=== PATIENT | male | born 1945 | race Two or more races ===

== ENCOUNTER 2024-03-30 14:24 | Inpatient (IN) | payer OTHER ==
[~2024-03-30] VITALS: Ht 180.3 cm; Wt 114.2 kg
[~2024-03-30 14:24] MED LIST: ATOR-507 PO; INSLANTI SC; INSREG3 SC; METF-372 PO
--- NOTE | 2024-03-30 14:41 | ECG ---
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
--- NOTE | 2024-03-30 15:00 | ED.PDOC ---
Altered Mental Status HPI Comments 78Y M with PMHx DM, HTN, and HLD presents to ED via EMS for chief complaint ALOC x1day. Pt has been experiencing confusion and poor appetite x1wk. Pt was seen at [facility] yesterday, 03/29/2024, for cc fall and was discharged home the same day. Per EMS, pt is usually up and talking. Pt arrived to ED with O2 supplementation. Pt is not on O2 at home. Chief Complaint: ALOC Time Seen by MD: 14:32 Primary Care Provider: unknown Reviewed Notes: Medications, Allergies Allergies: Coded Allergies: Aspirin (Verified Allergy, Unknown, 03/30/24) Information Source: Patient, Emergency Med Personnel Mode of Arrival: EMS Brought in by: EMS Severity: Moderate, Unable to Care for Self Timing: Days Duration: Since onset Prehospital treatment: Oxygen Quality: Change in Behavior, Confusion, Memory Loss, Not Eating Recent: None History of: Diabetes Associated Signs and Symptoms: None Past Medical History PAST MEDICAL HISTORY: DM, High Lipids, HTN Surgical History: Unknown Family History Family History: Unknown Social History Smoker: Non-Smoker Alcohol: Denies ETOH Use Drugs: Denies Drug Use Lives In: Assisted Care Constitutional: denies: chills, diaphoresis, fatigue, fever, malaise, sweats, weakness, others EENTM: denies: blurred vision, double vision, ear bleeding, ear discharge, ear drainage, ear pain, ear ringing, eye pain, eye redness, hearing loss, mouth pain, mouth swelling, nasal discharge, nose bleeding, nose congestion, nose pain, photophobia, tearing, throat pain, throat swelling, voice changes, others Respiratory: denies: cough, hemoptysis, orthopnea, SOB at rest, shortness of breath, SOB with excertion, stridor, wheezing, others Cardiovascular: denies: chest pain, dizzy spells, diaphoresis, Dyspnea on ex ertion, edema, irregular heart beat, left arm pain, lightheadedness, palpitations, PND, syncope, others Gastrointestinal: reports: poor appetite; denies: abdomen distended, abdominal pain, blood streaked bowels, constipated, diarrhea, dysphagia, difficulty swallowing, hematemesis, melena, nausea, poor fluid intake, rectal bleeding, rectal pain, vomiting, others Genitourinary: denies: burning, dysuria, flank pain, frequency, hematuria, incontinence, penile discharge, penile sore, pain, testicle pain, testicle swelling, urgency, others Neurological: denies: dizziness, fainting, headache, left sided numbness, left sided weakness, numbness, paresthesia, pre-existing deficit, right sided numbness, right sided weakness, seizure, speech problems, tingling, tremors, weakness, others Musculoskeletal: denies: back pain, gout, joint pain, joint swelling, muscle pain, muscle stiffness, neck pain, others Integumetry: denies: bruises, change in color, change in hair/nails, dryness, laceration, lesions, lumps, rash, wounds, others Allergic/Immunocompromised: denies: Difficulty Healing, Frequent Infections, Hives, Itching, others Hematologic/Lymphatic: denies: anemia, blood clots, easy bleeding, easy bruising, swollen glands, others Endocrine: denies: excessive hunger, excessive sweating, excessive thirst, excessive urination, flushing, intolerance to cold, intolerance to heat, unexplained weight gain, unexplained weight loss, others Psychiatric: denies: anxiety, bipolar disorder, depression, hopeless, panic disorder, schizophrenia, sleepless, suicidal, others Unable to Obtain due to: Altered Mental Status All Other Systems: Reviewed and Negative Physical Exam General Appearance: Moderate Distress, Normal HEENT: Normal ENT Inspection, Pharynx Normal, TMs Normal Neck: Full Range of Motion, Non-Tender, Normal, Normal Inspection Respiratory: Chest Non-Tender, Lungs Clear, No Accessory Muscle Use, No Respiratory Distress, Normal Breath Sounds Cardiovascular: No Edema, No JVD, No Murmur, No Gallop, Normal Peripheral Pulses, Regular Rate/Rhythm Breast Exam: Deferred Gastrointestinal: No Organomegaly, Non Tender, No Pulsatile Mass, Normal Bowel Sounds, Soft Genitalia: Deferred Pelvic: Deferred Rectal: Deferred Extremities: No calf tenderness, Normal capillary refill, Normal inspection, Normal range of motion, Non-tender, No pedal edema Musculoskeletal : Apperance: Normal 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 Was a procedure done?: No Differential Diagnosis (ALOC) Differential Diagnosis: Dehydration, DKA, Sepsis, Hypoxemia, CVA X-Ray, Labs, Meds, VS Vital Signs Date Time Temp Pulse Resp B/P (MAP) Pulse Ox O2 Delivery O2 Flow Rate FiO2 03/30/24 14:39 101.6 98 16 146/82 (103) 94 03/30/24 14:33 98 Lab Test 03/30/24 14:50 Range/Units Plasma/Serum Blood Alcohol 3.3 <10 mg/dL Patient disoriented. Does answer simple questions pain Vitals stable. He was recently at this hospital. Has fever. Possible sepsis from urine. Possible pneumonia. Was given Rocephin. EKG reviewed does not show any acute changes. Chest x-ray reviewed does not show any acute changes. Reviewed his previous visit. Explained to the patient. Continue cardiac monitoring. Time of 1ST Reevaluation: 15:02 Reevaluation 1ST: Unchanged Patient Education/Counseling: Diagnosis, Treatment Family Education/Counseling: No Family Present Additional Information The following tests were ordered, and results were reviewed by me: EKG, blood alcohol Additional Information was gathered from interviewing the following independent historians: EMS I discussed treatment and results with medical personnel. Departure 1 Departure Time of Disposition: 15:25 Impression: Primary Impression: Metabolic encephalopathy Disposition: ADMITTED INPATIENT Admit to: Med Surg Condition: Guarded Critical Care Note Critical Care Time?: Yes (45 min-critical care time only) Stability Stability form required: No Heart Score Heart Score: Heart Score Response (Comments) Value History N/A 0 EKG N/A 0 Age >65 2 Risk Factors 1 or 2 risk factors 1 Troponin N/A 0 Total 3 I personally scribed for JASON FERNÁNDEZ MD ([email or web address]) on 03/30/24 at 14:59. Electronically submitted by Mariposa Eddy (Ali). I personally scribed for JASON FERNÁNDEZ MD ([email or web address]) on 03/30/24 at 15:27. Electronically submitted by Mariposa Eddy (Ali). JASON FERNÁNDEZ MD Mar 30, 2024 14:59
[2024-03-30 15:49] LABS: Basophils # (auto) 0 10 ^3/uL (0-0.2); Basophils % (auto) 0.5 % (0.0-2.0); Eosinophils # (auto) 0 10 ^3/uL (0-0.8); Eosinophils % (auto) 0.7 % (0.0-7.0); Hematocrit 40.3 % (41.0-53.0); Hemoglobin 13.7 g/dL (13.5-17.5); Lymphocytes # (auto) 0.4 10 ^3/uL (0.4-5.4); Lymphocytes % (auto) 7.2 % (10.0-50.0); Mean Corpuscular Hemoglobin 31.5 pg (28.0-32.0); Mean Corpuscular Hgb Conc. 33.8 g/dL (32.0-36.0); Mean Corpuscular Volume 93.2 fL (80.0-100.0); Monocytes # (auto) 0.7 10 ^3/uL (0-1.3); Monocytes % (auto) 14.2 % (0.0-12.0); Neutrophils # (auto) 4.1 10 ^3/uL (1.6-8.6); Neutrophils % (auto) 77.4 % (37.0-80.0); Nucleated Red Blood Cells % 0.3 %; Platelet Count (auto) 230 10^3/uL (140-450); Red Blood Cells 4.33 10^6/uL (4.5-5.90); Red Cell Distribution Width 12.9 % (11.8-14.3); White Blood Cell 5.2 10^3/uL (4.4-10.8)
[2024-03-30 15:50] VITALS: PULSE 89; RESP 18; O2SAT 95
[2024-03-30] MEDS: SODIUM CHLORIDE 0.9% 1,000 ML IV ONE (16:09)
[2024-03-30] MEDS: PIPERACILLIN-TAZOB 3.375GM 100 ML IV ONE (16:09)
[2024-03-30 16:20] LABS: Anion Gap 12 (5-15); Calcium 9.5 mg/dL (8.7-10.4); Carbon Dioxide 23 mmol/L (20-31)
[2024-03-30 16:25] LABS: BUN/Creatinine Ratio 6.6 (10.0-20.0)
[2024-03-30] MEDS ORDERED: DEXTROSE (50%) 50ML SYRG IV PRN (16:30)
[2024-03-30] MEDS ORDERED: HYDROcodone-ACET 5/325MG TAB PO PRN (16:30)
[2024-03-30] MEDS ORDERED: hydrALAZINE HCL 20 MG/ML VL IV PRN (16:30)
[2024-03-30] MEDS: SODIUM CHLORIDE 0.9% 1,000 ML IV SCH (16:30)
[2024-03-30] MEDS ORDERED: ONDANSETRON HCL 4 MG/2 ML VIAL IV PRN (16:30)
[2024-03-30 16:33] LABS: Blood Urea Nitrogen 8 mg/dL (9-23); Chloride 97 mmol/L (98-107); Glucose 193 mg/dL (74-106); Sodium 132 mmol/L (136-145)
[2024-03-30] MEDS: ACCU-CHEK COMFORT CURVE STRIP VI SCH (17:00)
[2024-03-30 17:04] LABS: Urine Bacteria None Seen /hpf (None Seen)
[2024-03-30 17:19] LABS: Urine Blood 3+ /uL (Negative); Urine Clarity Clear (Clear); Urine Color Light-Yellow (Yellow); Urine Protein, UAD 1+ (Negative); Urine Specific Gravity 1.018 (1.001-1.035); Urine Squamous Epithelial Cell None Seen /hpf (<5); Urine Urobilinogen Normal (Negative); Urine WBC 1 /hpf (0 - 3)
--- NOTE | 2024-03-30 17:35 | DVHHP2 ---
History of Present Illness Reason for Visit: Metabolic encephalopathy History of Present Illness The patient is a 78-year-old male with past medical history of DM, hyperlipidemia, and hypertension who presented to [facility] ED for evaluation of altered level of consciousness. As reported by daughter, patient has been experiencing confusion, weakness, shortness of breaths, and poor appetite for a proximally 1 week duration. Patient was recently discharged from [facility] 03/29/24 for evaluation of fall from home. Patient's condition progressively get worse that prompted this visit. Patient was seen and evaluated in the ED, laboratory data shows WBC 5.2, platelets 230, sodium 132, potassium 4.0, BUN 8, creatinine 1.21, glucose 193, troponin 32, blood pressure 146/82, pulse 90, temperature 101.6 F, O2 saturation 94% on oxygen. Patient was started on IV antibiotic regimen Zosyn, please see medication orders section in the computer. On my assessment, patient's daughter at bedside, patient remains altered, no diaphoresis, no shortness of breath, no diarrhea, no vomiting, no chills. Patient was admitted for further evaluation and medical management. Past Medical History DM, High Lipids, HTN Past Surgical History No past surgical history on file Family History Reviewed, noncontributory to the management of this case. Past Social History The patient lives at home, denies smoking, alcohol or illicit drugs abuse. Review of Systems Constitutional: Yes: Fever, Weakness; No: Chills, Sweats, Malaise, Other Eyes: No: Pain, Vision change, Conjunctivae inflammation, Eyelid inflammation, Other, Redness ENT: No: Ear pain, Ear discharge, Nose pain, Nose discharge, Nose congestion, Mouth pain, Mouth swelling, Throat pain, Throat swelling, Other Respiratory: Shortness of breath; No: Cough, Dry, SOB with excertion, Wheezing, Hemoptysis, Pleuritic Pain, Sputum, Wheezing, Other Cardiovascular: No: Chest Pain, Palpitations, Orthopnea, Paroxysmal Noc. Dyspnea, Edema, Lt Headedness, Other Gastrointestinal: Other (Poor appetite); No: Nausea, Vomiting, Abdominal Pain, Diarrhea, Constipation, Melena, Hematochezia Genitourinary: No Dysuria, No Frequency, No Incontinence, No Hematuria, No Retention, No Other Musculoskeletal: No: other, neck pain, shoulder pain, arm pain, back pain, hand pain, leg pain, foot pain Skin: No: Rash, Lesions, Jaundice, Bruising, Other Neurological: No: Weakness, Numbness, Incoordination, Change in speech, Confusion, Seizures, Other Allergies: Coded Allergies: Aspirin (Verified Allergy, Unknown, 03/30/24) Medications Current Medications Medications Dose Ordered Sig/Erika Route Start Time Stop Time Status Last Admin Dose Admin Piperacillin Sod/ Tazobactam Sod 100 ml @ 25 mls/hr Q8HR IV 03/30/24 22:00 Hydralazine HCl 10 mg Q6HP PRN IV 03/30/24 16:30 Atorvastatin Calcium 20 mg HS PO 03/30/24 22:00 Diagnostic Test (Pha) 1 strip ACHS 03/30/24 17:00 Insulin Human Regular HS SC 03/30/24 22:00 Insulin Human Regular AC SC 03/30/24 17:00 Dextrose 50 ml UD PRN IV 03/30/24 16:30 Sodium Chloride 1,000 ml @ 60 mls/hr [id number] IV 03/30/24 16:30 Acetaminophen/ Hydrocodone Bitart 1 tab Q4HP PRN PO 03/30/24 16:30 Ondansetron HCl 4 mg Q4HP PRN IV 03/30/24 16:30 Docusate Sodium 100 mg BIDPRN PRN PO 03/30/24 16:30 Enoxaparin Sodium 40 mg DAILY SC 03/31/24 10:00 Acetaminophen 650 mg Q6HP PRN PO 03/30/24 16:30 Exam Vital Signs Vital Signs Date Time Temp Pulse Resp B/P (MAP) Pulse Ox O2 Delivery O2 Flow Rate FiO2 03/30/24 16:00 90 03/30/24 15:50 18 95 Nasal Cannula* 2 28 03/30/24 14:58 101.7 160/84 (109) 101.7 General Appearance: Alert, Cooperative, No acute distress, Other (Oriented x1) HEENT: Atraumatic, PERRLA, EOMI, Mucous membr. moist/pink Respiratory: Normal air movement, Other (Diminished breath sounds) Cardiovascular: Regular rate, Normal S1, Normal S2, No murmurs Abdominal: Normal bowel sounds, Soft, No tenderness, No hepatospenomegaly, No masses Extremities: No clubbing, No cyanosis, No edema, Normal pulses, No tenderness/swelling Skin: No rashes, No breakdown, No significant lesion Neuro: Normal tone, Sensation intact, Cranial nerves 3-12 NL, Reflexes 2+, Other (Generalized weakness) Psych/Mental Status: Mood NL, Other (Altered mental status) Labs/Xrays Labs Test 03/30/24 16:50 03/30/24 14:50 Range/Units Urine Color Light-yellow Yellow Urine Clarity Clear Clear Urine pH 6.0 5.0-9.0 Urine Specific [place] 1.018 1.001-1.035 Urine Protein 1+ H Negative Urine Ketones 2+ H Negative Urine Blood 3+ H Negative /uL Urine Nitrite Negative Negative Urine Bilirubin Negative Negative Urine Urobilinogen Normal Negative mg/dL Urine Leukocyte Esterase Negative Negative /uL Urine RBC 1 0 - 3 /hpf Urine WBC 1 0 - 3 /hpf Urine Squamous Epithelial Cells None seen <5 /hpf Urine Bacteria None seen None Seen /hpf Urine Glucose Trace Normal mg/dL White Blood Count 5.2 4.4-10.8 10^3/uL Red Blood Count 4.33 L 4.5-5.90 10^6/uL Hemoglobin 13.7 13.5-17.5 g/dL Hematocrit 40.3 L 41.0-53.0 % Mean Corpuscular Volume 93.2 80.0-100.0 fL Mean Corpuscular Hemoglobin 31.5 28.0-32.0 pg Mean Corpuscular Hemoglobin Concent 33.8 32.0-36.0 g/dL Red Cell Distribution Width 12.9 11.8-14.3 % Platelet Count 230 140-450 10^3/uL Mean Platelet Volume 7.5 6.9-10.8 fL Neutrophils (%) (Auto) 77.4 37.0-80.0 % Lymphocytes (%) (Auto) 7.2 L 10.0-50.0 % Monocytes (%) (Auto) 14.2 H 0.0-12.0 % Eosinophils (%) (Auto) 0.7 0.0-7.0 % Basophils (%) (Auto) 0.5 0.0-2.0 % Neutrophils # (Auto) 4.1 1.6-8.6 10 ^3/uL Lymphocytes # (Auto) 0.4 0.4-5.4 10 ^3/uL Monocytes # (Auto) 0.7 0-1.3 10 ^3/uL Eosinophils # (Auto) 0 0-0.8 10 ^3/uL Basophils # (Auto) 0 0-0.2 10 ^3/uL Nucleated Red Blood Cells 0.3 % Sodium Level 132 L 136-145 mmol/L Potassium Level 4.0 3.5-5.1 mmol/L Chloride Level 97 L 98-107 mmol/L Carbon Dioxide Level 23 20-31 mmol/L Anion Gap 12 5-15 Blood Urea Nitrogen 8 L 9-23 mg/dL Creatinine 1.21 0.700-1.30 mg/dL Glomerular Filtration Rate Calc 61 >90 mL/min BUN/Creatinine Ratio 6.6 L 10.0-20.0 Serum Glucose 193 H 74-106 mg/dL Calcium Level 9.5 8.7-10.4 mg/dL Troponin I High Sensitivity 32 </=54 ng/L Plasma/Serum Blood Alcohol 3.3 <10 mg/dL Assessment/Plan Assessment/Plan Metabolic encephalopathy Fever, unspecified Generalized weakness Altered mental status Diabetes mellitus with hyperglycemia Plan 1. Admit to telemetry unit 2. Breathing treatment 3. Pain control management 4. Management of fluids and electrolytes 5. Consultation for Neurology 6. Diagnostic tests head CT 7. DVT prophylaxis-on Lovenox 8. Repeat labs CBC, CMP in a.m. 9. Continue with current medical management 10. Treatment plan discussed with patient/daughter and RN. Daughter/Patient verbalized understanding. Plan discussed with: Patient, Daughter (At bedside), Other (RN) My Orders Orders - PRATIBHA JIMÉNEZ DNP Procedure Category Date Status Time Consistent DIET 03/30/24 [facility]Di[facility] Dinner Piperacillin-Tazob PHA 03/30/24 In Process 3.375gm (Zosyn 3.375g 22:00 Hydralazine Injection PHA 03/30/24 In Process (Apresoline Inject 16:30 Atorvastatin (Lipitor) PHA 03/30/24 In Process 22:00 Glucose Blood PHA 03/30/24 In Process (Accu-Chek Comfort 17:00 Insulin R (Human) PHA 03/30/24 In Process (Insulin R) 22:00 Insulin R (Human) PHA 03/30/24 In Process (Insulin R) 17:00 Dextrose 50% Syringe PHA 03/30/24 In Process 16:30 Allergies RAAD 03/30/24 In Process 16:29 Code Status CODE 03/30/24 Transmitted 16:29 Sodium Chloride 0.9% PHA 03/30/24 In Process 16:30 Oxygen Per Hour RT 03/30/24 Transmitted 16:29 Hydrocodone-Acet PHA 03/30/24 In Process 5/325mg Tab (Blaine 16:30 Ondansetron Hcl PHA 03/30/24 In Process (Zofran) 16:30 Docusate Sodium PHA 03/30/24 In Process Capsule (Colace 16:30 Enoxaparin Sodium PHA 03/31/24 In Process (Lovenox) 10:00 Fall Risk Precautions RAAD 03/30/[address] 16:29 Complete Blood Count LAB 03/31/24 Verified 04:00 Comprehensive LAB 03/31/24 Verified Metabolic Panel 04:00 Condition: Serious RAAD 03/30/24 In Process 16:29 Acetaminophen Tablet PHA 03/30/24 In Process (Tylenol Tablet) 16:30 Sequential RAAD 03/30/24 In Process Compression Device Admit ADMIT 03/30/24 Verified 17:33 Nitroglycerin PHA 03/30/24 Verified Sublingual (Ntrostat 17:45 Morphine Sulfate PHA 03/30/24 Verified Injection 17:45 Problem List: (1) Metabolic encephalopathy (2) Fever, unspecified (3) Altered mental status (4) Generalized weakness (5) Diabetes mellitus with hyperglycemia Date of Service: Mar 30, 2024 Billing Provider: PRATIBHA JIMÉNEZ DNP Common Visit Codes: 69967-DIUMHDV INP/OBS CARE (HIGH) PRATIBHA JIMÉNEZ DNP Mar 30, 2024 17:35
[2024-03-30] MEDS ORDERED: NITROGLYCERIN 0.4 MG SL TAB SL PRN (17:45)
[2024-03-30] MEDS ORDERED: MORPHINE SULFATE INJ 2 MG/ml SYRG IV PRN (17:45)
[2024-03-30] MEDS: InsuLIN REG 1unit/0.01ml Soln (100units/ml) SC SCH ×2 (18:29→22:00)
--- NOTE | 2024-03-30 20:57 | DVH ---
CHEST RADIOGRAPH Indication: Shortness of breaths Technique: Single frontal view of the chest was obtained Comparison: None FINDINGS: Lines and Tubes: None Lungs: Bibasilar areas of infiltrate and atelectasis. Pleura: No effusion. No pneumothorax. Cardiomediastinal contours: Unremarkable Bones: No acute osseous abnormality. IMPRESSION: 1. Bibasilar areas of infiltrate and atelectasis.
--- NOTE | 2024-03-30 21:01 | DVH ---
Procedure: CT HEAD WITHOUT CONTRAST Study Date and Requested Time: 03/30/2024 08:39 PM History: Altered mental status Comparison: CT head 03/26/2024 Dose: CTDI: 68.45 mGy DLP: 1348.62 mGycm Technique: Multiplanar images obtained through the brain without intravenous contrast. Findings: Moderate diffuse brain atrophy. Mild chronic small vessel ischemic changes. No hemorrhages, masses, mass effect, midline shift, herniation or cytotoxic edema following a large v ascular territory. No intra-axial or extra-axial fluid collections. No evidence of hydrocephalus. The basal cisterns are patent. The pituitary gland, sella and parasellar regions are unremarkable. The cerebellar tonsils are in nor mal position. The cerebellum is unremarkable. Right lens replacement. Otherwise, orbits and globes are unremarkable. Pansinus mucoperiosteal thick ening. The mastoids are clear. There are no worrisome calvarial lesions. Impression: No evidence of acute intracranial abnormality. If symptoms persist, consider MRI for further evaluati on. Pansinus disease.
[2024-03-30 21:55] VITALS: BP 155/79; PULSE 84; RESP 17; TEMP 100.4; O2SAT 96
[2024-03-30 22:00] VITALS: BP 155/79; PULSE 84; RESP 17; TEMP 100.4; O2SAT 96
[2024-03-30] MEDS: PIPERACILLIN-TAZOB 3.375GM 100 ML IV SCH (22:00)
[2024-03-30] MEDS: ATORVASTATIN 20 MG TAB PO SCH (22:00)
[2024-03-31] VITALS (8 sets, daily range): BP systolic 101–146; BP diastolic 49–83; PULSE 55–91; RESP 16–22; TEMP 98–100; O2SAT 91–95
--- NOTE | 2024-03-31 02:18 | BSKYNEURO ---
[place] Neuro Note # Demographics Consult Type: General Neurology Patient Location: Inpatient First Name: Ezio Last Name: Danyel Date of : 1945 Age: 78 Gender: Male Facility: [facility] Time of Initial Page ( Time): 03/31/2024, 01:59 Time of Return Call ( Time): 03/31/2024, 01:59 # HPI History: Here for 1 week of AMS/confusion. No seizure like activity. # Exam Additional Neurologic Exam: eyes open and alert mumbling confused speech. may have hallucinations. Antigravity in arms and legs. Obeys some simple commands. # Data Head CT: - no bleed - per radiologist read # Assessment Impression: - Altered Mental Status If neck stiffness or fever of unknown origin consider LP # Plan Labs: - Ammonia - B12 - TSH - comprehensive metabolic panel Imaging: (urgency: routine): - MRI Brain with AND without contrast Other: - If patient has any neurological deterioration please call me back immediately - would not pursue stroke work-up if MRI is negative # Logistics Attestation of consult completion: The patient is located at: [facility]. Facility staff participated in the visit. I performed this telemedicine visit from my offsite office utilizing interactive 2 way audio and visual telecommunication technology. Total time spent in telemedicine encounter: I spent 21 minutes reviewing clinical data and/or imaging, obtaining history, examining the patient, communicating with the onsite care team, and in preparation of this report. # Demographics First Name: Ezio Last Name: Danyel Facility: [facility] Electronically signed at 03/31/2024 02:19 () by David Min MD Yes BASSAM MIN MD Mar 31, 2024 02:18
[2024-03-31 05:18] LABS: COVID19 ANTIGEN SOFIA FIA NEGATIVE (NEGATIVE)
[2024-03-31 05:55] LABS: Basophils # (auto) 0 10 ^3/uL (0-0.2); Basophils % (auto) 0.6 % (0.0-2.0); Eosinophils # (auto) 0.1 10 ^3/uL (0-0.8); Eosinophils % (auto) 1.4 % (0.0-7.0); Hematocrit 34.8 % (41.0-53.0); Hemoglobin 11.9 g/dL (13.5-17.5); Lymphocytes # (auto) 0.7 10 ^3/uL (0.4-5.4); Lymphocytes % (auto) 15.7 % (10.0-50.0); Mean Corpuscular Hgb Conc. 34.1 g/dL (32.0-36.0); Mean Corpuscular Volume 93.7 fL (80.0-100.0); Monocytes # (auto) 0.8 10 ^3/uL (0-1.3); Neutrophils % (auto) 65.3 % (37.0-80.0); Nucleated Red Blood Cells % 0.1 %; Platelet Count (auto) 188 10^3/uL (140-450); Red Blood Cells 3.72 10^6/uL (4.5-5.90); Red Cell Distribution Width 12.7 % (11.8-14.3); White Blood Cell 4.6 10^3/uL (4.4-10.8)
[2024-03-31 06:12] LABS: Alanine Aminotransferase 33 U/L (7-40); Albumin 3.4 g/dL (3.2-4.8); Alkaline Phosphatase 69 U/L (46-116); Anion Gap 9 (5-15); BUN/Creatinine Ratio 7.1 (10.0-20.0); Carbon Dioxide 24 mmol/L (20-31); Chloride 101 mmol/L (98-107); Potassium 3.7 mmol/L (3.5-5.1)
[2024-03-31 06:13] LABS: Bilirubin, Total 0.9 mg/dL (0.2-1.0); Total Protein 5.9 g/dL (5.7-8.2)
[2024-03-31 07:02] LABS: Aspartate Aminotransferase 94 U/L (13-40); Blood Urea Nitrogen 8 mg/dL (9-23); Calcium 8.4 mg/dL (8.7-10.4); Glucose 133 mg/dL (74-106); Sodium 134 mmol/L (136-145)
[2024-03-31] MEDS ORDERED: METF-370 PO (07:42)
[2024-03-31] MEDS ORDERED: LISI-275 PO (07:43)
--- NOTE | 2024-03-31 10:15 | DVHPNRES ---
Progress Note Date Seen: Mar 31, 2024 Resident Creating Document: KAJAL CASAREZ RESIDENT Medical Necessity Reason Pt with a Central, PICC or Fol: No Subjective Review of Systems Patient is 78 years old male with past medical history of hypertension, diabetes mellitus type 2, hyperlipidemia, osteoarthritis of the knee, history of memory impairment was brought in by the EMS from [place] post acute care due to altered mental status. Patient is a poor historian. Information was gathered from ER documentation and also from patient's daughter Amna Elizondo. Patient was recently discharged from [facility] to a [facility] post acute care status post mechanical fall, status post metabolic encephalopathy. As per daughter yesterday patient had altered mental status, confusion, some dizziness and drowsiness, incoherent with poor appetite which prompted the family to bring her to the hospital. Patient and family denied any chest pain, dysuria, acute joint pain or swelling, abdominal pain. Initial lab workup revealed WBC 5.2, hemoglobin 13.7, sodium 132, potassium 4, serum creatinine 1.21, serum glucose 193, calcium 9.5, AST mildly elevated 94, serum bilirubin 0.9, ALT 94, troponin I 32. Chest x-ray revealed bilateral basilar infiltrate or atelectasis. CT head was negative for acute intracranial process. PMH-hypertension, diabetes mellitus type 2, hyperlipidemia, osteoarthritis of the knee, history of memory impairment Allergy-aspirin Personal History/ Social History- patient came from [place] [facility] acute care, denies /alcoholism/drug abuse Patient was seen today at the bedside. Patient reports feeling tired Cardiovascular- deny acute chest pain or shortness of breath or cough or palpitation Respiratory- denies cough or short of breath or wheezing Gastrointestinal- denies any rectal bleeding, nausea or vomiting Musculoskeletal-denies acute joint swelling or tenderness or redness Neurological- denies acute dysarthria, dysphagia, change in vision Psychiatry- denies depression or SI or HI Skin- denies acute rash or purpura Objective vital signs Vital Sign Date Time Temp Pulse Resp B/P (MAP) Pulse Ox O2 Delivery O2 Flow Rate FiO2 03/31/24 09:09 98.7 79 18 146/63 (90) 95 98.7 03/30/24 21:55 Nasal Cannula* 2 28 Total Intake and Output 03/30/24 03/30/24 03/31/24 15:00 23:00 07:00 Intake Total 460 ml Output Total 700 ml Balance -240 ml medications Current Medications Medications Dose Ordered Sig/Erika Route Start Time Stop Time Status Last Admin Dose Admin Piperacillin Sod/ Tazobactam Sod 100 ml @ 25 mls/hr Q8HR IV 03/30/24 22:00 03/31/24 06:27 25 MLS/HR Hydralazine HCl 10 mg Q6HP PRN IV 03/30/24 16:30 Atorvastatin Calcium 20 mg HS PO 03/30/24 22:00 03/30/24 22:00 20 MG Diagnostic Test (Pha) 1 strip ACHS 03/30/24 17:00 03/31/24 06:31 1 STRIP Insulin Human Regular HS SC 03/30/24 22:00 Insulin Human Regular AC SC 03/30/24 17:00 03/31/24 06:35 2 UNITS Dextrose 50 ml UD PRN IV 03/30/24 16:30 Sodium Chloride 1,000 ml @ 60 mls/hr [id number] IV 03/30/24 16:30 03/30/24 23:44 60 MLS/HR Acetaminophen/ Hydrocodone Bitart 1 tab Q4HP PRN PO 03/30/24 16:30 Ondansetron HCl 4 mg Q4HP PRN IV 03/30/24 16:30 Docusate Sodium 100 mg BIDPRN PRN PO 03/30/24 16:30 Enoxaparin Sodium 40 mg DAILY SC 03/31/24 10:00 Acetaminophen 650 mg Q6HP PRN PO 03/30/24 16:30 Nitroglycerin 0.4 mg Q5MINP PRN SL 03/30/24 17:45 Morphine Sulfate 2 mg Q30M PRN IV 03/30/24 17:45 Examination General examination- patient's confusion, awake, conversant HEENT- PEERLA, no acute nasal discharge Cardiovascular- S1-S2 audible, rate and rhythm regular, no murmur Respiratory- left basilar lung crackles+ Gastrointestinal-nontender, bowel sound+. Nondistended Musculoskeletal-no acute joint swelling or tenderness or redness# Lower extremity- leg edema Neurological- cranial nerves intact, no acute dysarthria or dysphagia Psychiatry- AAOX2 Skin- fragile skin laboratory and microbiology Laboratory Tests 03/31/24 05:20 Test 03/31/24 05:20 Range/Units Serum Glucose 133 H 74-106 mg/dL Problem List/Assessment/Plan Problem List/Assessment/Plan # Metabolic encephalopathy likely due to acute hypoxic respiratory failure due to pneumonia # acute hypoxic respiratory failure likely due to pneumonia Gram-positive versus Gram-negative # acute pneumonia Gram-positive versus Gram-negative # hypertension # diabetes mellitus type 2 # hyperlipidemia # osteoarthrosis of the knee '# obesity # memory impairment CT scan of the chest no acute intracranial process Chest x-ray bilateral basilar infiltrate or atelectasis Patient tested negative for COVID19 Ordered MRI of the brain without contrast tomorrow for further evaluation and care Continue ceftriaxone 1 g IV daily Continue doxycycline 100 mg IV b.i.d. Continue IV normal saline 100 mL/hour Continue atorvastatin 20 mg p.o. q.h.s. Continue insulin sliding scale as prescribed Lovenox 40 mg subcutaneously qd Continue other medication as prescribed Diet-patient has lactose intolerance, mechanical soft, carbohydrate consistent diet Goals of care/advance care planning; FULL CODE; discussed with the patient >15 minutes PUD prophylaxis: Pantoprazole DVT prophylaxis: Lovenox Plan discussed with Dr. Valverde, nursing staff, patient Total time spent on patient evaluation, chart review, assessment and plan, discussion discussion >30 minutes Plan discussed with: Patient Plan discussed with: Patient, Daughter (RN), Other Date of Service: Mar 31, 2024 Billing Provider: NO VALVERDE MD Common Visit Codes: [id number] INP/OBS CARE(HIGH) Secondary Visit Codes: [id number] CARE PLAN 30 MINUTES KAJAL CASAREZ Mar 31, 2024 10:15 NO VALVERDE MD Mar 31, 2024 22:32
[2024-03-31] MEDS: ENOXAPARIN SOD 40 MG/0.4 ML SYRINGE SC SCH (10:26)
[2024-03-31] MEDS: SODIUM CHLORIDE 0.9% 1,000 ML IV SCH (11:15)
[2024-03-31] MEDS: PANTOPRAZOLE 40 MG TAB PO ONE (12:11)
[2024-03-31 13:11] LABS: Folate (Folic Acid) 6.37 ng/mL (>5.38)
[2024-03-31] MEDS ORDERED: DOXYCYCLINE 100MG/250ML 250 ML IV SCH (15:30)
[2024-03-31] MEDS ORDERED: DOXYCYCLINE 100MG/250ML 250 ML IV ONE (15:30)
[2024-03-31] MEDS: DOXYCYCLINE 100 MG TAB/CAP PO ONE (18:20)
[2024-03-31] MEDS: ARTIFICIAL TEARS 15ml EACHEYE PRN (18:21)
[2024-03-31] MEDS: cefTRIAXone 1GM/50ML D5W 50 ML IV ONE (19:16)
[2024-03-31] MEDS: DOXYCYCLINE 100 MG TAB/CAP PO SCH (22:09)
[2024-04-01] VITALS (12 sets, daily range): BP systolic 120–136; BP diastolic 53–66; PULSE 78–90; RESP 14–20; TEMP 97.5–99.1; O2SAT 92–97
[2024-04-01] MEDS: PANTOPRAZOLE 40 MG TAB PO SCH (05:51)
[2024-04-01 06:33] LABS: Alanine Aminotransferase 25 U/L (7-40); Alkaline Phosphatase 64 U/L (46-116); Anion Gap 9 (5-15); BUN/Creatinine Ratio 6.7 (10.0-20.0); Bilirubin, Total 0.6 mg/dL (0.2-1.0); Carbon Dioxide 22 mmol/L (20-31); Chloride 100 mmol/L (98-107); Magnesium 1.6 mg/dL (1.6-2.6); Potassium 3.6 mmol/L (3.5-5.1)
[2024-04-01 06:42] LABS: Albumin 3.2 g/dL (3.2-4.8); Aspartate Aminotransferase 69 U/L (13-40); Blood Urea Nitrogen 8 mg/dL (9-23); Calcium 8.4 mg/dL (8.7-10.4); Glucose 112 mg/dL (74-106); Sodium 131 mmol/L (136-145); Total Protein 5.6 g/dL (5.7-8.2)
[2024-04-01 07:55] LABS: Basophils # (auto) 0 10 ^3/uL (0-0.2); Basophils % (auto) 0.7 % (0.0-2.0); Eosinophils # (auto) 0.1 10 ^3/uL (0-0.8); Eosinophils % (auto) 1.8 % (0.0-7.0); Hematocrit 35.4 % (41.0-53.0); Hemoglobin 12.1 g/dL (13.5-17.5); Lymphocytes # (auto) 0.8 10 ^3/uL (0.4-5.4); Lymphocytes % (auto) 18.3 % (10.0-50.0); Mean Corpuscular Hemoglobin 32.1 pg (28.0-32.0); Mean Corpuscular Hgb Conc. 34.2 g/dL (32.0-36.0); Mean Corpuscular Volume 93.6 fL (80.0-100.0); Monocytes # (auto) 0.6 10 ^3/uL (0-1.3); Monocytes % (auto) 14.9 % (0.0-12.0); Neutrophils # (auto) 2.8 10 ^3/uL (1.6-8.6); Neutrophils % (auto) 64.3 % (37.0-80.0); Nucleated Red Blood Cells % 0.3 %; Platelet Count (auto) 186 10^3/uL (140-450); Red Blood Cells 3.79 10^6/uL (4.5-5.90); Red Cell Distribution Width 12.7 % (11.8-14.3); White Blood Cell 4.4 10^3/uL (4.4-10.8)
[2024-04-01] MEDS: cefTRIAXone 1GM/50ML D5W 50 ML IV SCH (09:52)
[2024-04-01] MEDS: IPRATROPIUM BROM 0.5 MG/2.5ML INH SOL NEB SCH (12:59)
[2024-04-01] MEDS: ALBUTEROL SULF 2.5 MG/0.5ML(0.5%) NEB SOLN NEB SCH (12:59)
--- NOTE | 2024-04-01 13:01 | DVH ---
EXAM: MRI BRAIN HEAD WO CONTRAST HISTORY: RULE OUT CVA, COMPARISON: None TECHNIQUE: MRI was performed utilizing multiple appropriate imaging planes and pulse sequences. FINDINGS: SUPRATENTORIAL REGION: No evidence for acute ischemia or intracranial hemorrhage. Scattered ill-defi meagan FLAIR hyperintensities are noted within the bilateral periventricular region, rodríguez radiata and subcortical white matter. POSTERIOR FOSSA: Unremarkable. BRAINSTEM: Unremarkable. SELLAR/SUPRASELLAR REGION: Unremarkable. VENTRICLES, CISTERNS, SULCI: Age-appropriate. ORBITS: Unremarkable. PARANASAL SINUSES: Moderate opacification of the ethmoid sinus. Air-fluid level noted in bilateral maxillary and frontal sinuses. Diffuse paranasal sinus mucosal thickening noted. MASTOID AIR CELLS: Unremarkable. VASCULATURE: Unremarkable. BONES/ SOFT TISSUES: Unremarkable. OTHER: None. IMPRESSION: 1. No acute intracranial process identified. 2. Mild chronic microvascular ischemic changes. 3. Acute sinusitis.
[2024-04-01 14:14] LABS: Rapid Influenza B Negative (Negative)
[2024-04-01 14:19] LABS: Rapid Influenza A Positive (Negative)
[2024-04-01] MEDS: MAGNESIUM SULFATE 1GM/100ML 100 ML IV ONE (15:30)
[2024-04-01] MEDS ORDERED: DOXY100C79 PO (15:55)
--- NOTE | 2024-04-01 18:54 | DVHPNRES ---
Progress Note Date Seen: Apr 01, 2024 Resident Creating Document: KAJAL CASAREZ RESIDENT Medical Necessity Reason Pt with a Central, PICC or Fol: No Subjective Review of Systems Patient is 78 years old male with past medical history of hypertension, diabetes mellitus type 2, hyperlipidemia, osteoarthritis of the knee, history of memory impairment was brought in by the EMS from [place] [facility] acute care due to altered mental status. Patient is a poor historian. Information was gathered from ER documentation and also from patient's daughter Amna Elizondo. Patient was recently discharged from [facility] to a [facility] post acute care status post mechanical fall, status post metabolic encephalopathy. As per daughter yesterday patient had altered mental status, confusion, some dizziness and drowsiness, incoherent with poor appetite which prompted the family to bring her to the hospital. Patient and family denied any chest pain, dysuria, acute joint pain or swelling, abdominal pain. Initial lab workup revealed WBC 5.2, hemoglobin 13.7, sodium 132, potassium 4, serum creatinine 1.21, serum glucose 193, calcium 9.5, AST mildly elevated 94, serum bilirubin 0.9, ALT 94, troponin I 32. Chest x-ray revealed bilateral basilar infiltrate or atelectasis. CT head was negative for acute intracranial process. PMH-hypertension, diabetes mellitus type 2, hyperlipidemia, osteoarthritis of the knee, history of memory impairment Allergy-aspirin Personal History/ Social History- patient came from [place] [facility] acute care, denies /alcoholism/drug abuse Patient was seen today at the bedside. Patient reports feeling tired Cardiovascular- deny acute chest pain or shortness of breath or cough or palpitation Respiratory- denies cough or short of breath or wheezing Gastrointestinal- denies any rectal bleeding, nausea or vomiting Musculoskeletal-denies acute joint swelling or tenderness or redness Neurological- denies acute dysarthria, dysphagia, change in vision Psychiatry- denies depression or SI or HI Skin- denies acute rash or purpura Patient is seen today for clinical evaluation. Labs and chart reviewed. Patient reports feeling much better today. Patient's respiratory distress has improved a lot. Patient tested positive for influenza type A. Ordered Tamiflu 75 mg p.o. b.i.d.. Objective vital signs Vital Sign Date Time Temp Pulse Resp B/P (MAP) Pulse Ox O2 Delivery O2 Flow Rate FiO2 04/01/24 16:00 97.5 80 20 129/59 (82) 92 97.5 04/01/24 12:59 Nasal Cannula 2.0 04/01/24 12:59 28 Total Intake and Output 03/31/24 03/31/24 04/01/24 15:00 23:00 07:00 Intake Total 100 ml 700 ml 300 ml Output Total 1200 ml 700 ml Balance 100 ml -500 ml -400 ml medications Current Medications Medications Dose Ordered Sig/Erika Route Start Time Stop Time Status Last Admin Dose Admin Hydralazine HCl 10 mg Q6HP PRN IV 03/30/24 16:30 Atorvastatin Calcium 20 mg HS PO 03/30/24 22:00 03/31/24 22:09 20 MG Diagnostic Test (Pha) 1 strip ACHS 03/30/24 17:00 04/01/24 17:30 1 STRIP Insulin Human Regular HS SC 03/30/24 22:00 03/31/24 22:19 3 UNITS Insulin Human Regular AC SC 03/30/24 17:00 04/01/24 17:30 3 UNITS Dextrose 50 ml UD PRN IV 03/30/24 16:30 Acetaminophen/ Hydrocodone Bitart 1 tab Q4HP PRN PO 03/30/24 16:30 Ondansetron HCl 4 mg Q4HP PRN IV 03/30/24 16:30 Docusate Sodium 100 mg BIDPRN PRN PO 03/30/24 16:30 Enoxaparin Sodium 40 mg DAILY SC 03/31/24 10:00 04/01/24 09:51 40 MG Acetaminophen 650 mg Q6HP PRN PO 03/30/24 16:30 Nitroglycerin 0.4 mg Q5MINP PRN SL 03/30/24 17:45 Morphine Sulfate 2 mg Q30M PRN IV 03/30/24 17:45 Pantoprazole Sodium 40 mg DAILY@0600 PO 04/01/24 06:00 04/01/24 05:51 40 MG Ceftriaxone Sodium 50 ml @ 100 mls/hr DAILY@09 IV 04/01/24 09:00 04/01/24 09:52 100 MLS/HR Doxycycline Hyclate 250 ml @ 125 mls/hr Q12H IV 03/31/24 15:30 UNV Doxycycline Monohydrate 100 mg Q12HR PO 03/31/24 22:00 04/01/24 09:51 100 MG Artificial Tears 1 drop Q6HP PRN EACHEYE 03/31/24 17:15 03/31/24 18:21 1 DROP Albuterol 2.5 mg Q6HR NEB 04/01/24 12:00 04/01/24 12:59 2.5 MG Ipratropium [place] 0.5 mg Q6HR NEB 04/01/24 12:00 04/01/24 12:59 0.5 MG Oseltamivir Phosphate 75 mg Q12HR PO 04/01/24 22:00 04/06/24 10:01 Examination General examination- patient's confusion, awake, conversant HEENT- PEERLA, no acute nasal discharge Cardiovascular- S1-S2 audible, rate and rhythm regular, no murmur Respiratory- left basilar lung crackles+ Gastrointestinal-nontender, bowel sound+. Nondistended Musculoskeletal-no acute joint swelling or tenderness or redness# Lower extremity- leg edema Neurological- cranial nerves intact, no acute dysarthria or dysphagia Psychiatry- AAOX3 Skin- fragile skin laboratory and microbiology Laboratory Tests 04/01/24 04:41 Test 04/01/24 04:41 Range/Units Serum Glucose 112 H 74-106 mg/dL Microbiology Date/Time Source Procedure Growth Status 03/31/24 18:28 Voided Urine Urine Culture - Preliminary Resulted 03/31/24 13:28 Blood Blood Culture - Preliminary NO GROWTH AFTER 24 HOURS OF INCUBATION. Resulted 03/31/24 04:30 Nose MRSA Screen - Final Complete Problem List/Assessment/Plan Problem List/Assessment/Plan # Metabolic encephalopathy likely due to acute hypoxic respiratory failure due to pneumonia # acute hypoxic respiratory failure likely due to pneumonia Gram-positive versus Gram-negative # acute pneumonia Gram-positive versus Gram-negative # influenza type A # hypertension # diabetes mellitus type 2 # hyperlipidemia # osteoarthrosis of the knee '# obesity # memory impairment CT scan of the chest no acute intracranial process Chest x-ray bilateral basilar infiltrate or atelectasis Patient tested negative for COVID19 MRI of the brain without contrast -No acute intracranial process identified. Mild chronic microvascular ischemic changes. Acute sinusitis. Continue ceftriaxone 1 g IV daily Continue doxycycline 100 mg IV b.i.d. Continue IV normal saline 100 mL/hour Continue atorvastatin 20 mg p.o. q.h.s. Continue insulin sliding scale as prescribed Lovenox 40 mg subcutaneously qd Continue Tamiflu 75 mg p.o. b.i.d. Continue other medication as prescribed Diet-patient has lactose intolerance, mechanical soft, carbohydrate consistent diet Goals of care/advance care planning; FULL CODE; discussed with the patient >15 minutes PUD prophylaxis: Pantoprazole DVT prophylaxis: Lovenox Plan discussed with Dr. Valverde, nursing staff, patient Total time spent on patient evaluation, chart review, assessment and plan, discussion discussion >30 minutes Plan discussed with: Patient Plan discussed with: Patient, Daughter (RN), Other My Orders My Orders Orders - KAJAL CASAREZ Procedure Category Date Status Time Albuterol Medneb PHA 04/01/24 In Process (Ventolin Medneb) 12:00 Ipratropium Medneb PHA 04/01/24 In Process (Atrovent Medneb) 12:00 Discharge DISCHARGE 04/01/24 Transmitted 15:04 * Crystalizer CONS 04/01/24 Transmitted Consult Oseltamivir 75mg PHA 04/01/24 In Process Capsule (Tamiflu 75mg 22:00 Date of Service: Apr 01, 2024 Billing Provider: NO VALVERDE MD Common Visit Codes: [id number] INP/OBS CARE(HIGH) KAJAL CASAREZ Apr 01, 2024 18:54 NO VALVERDE MD Apr 02, 2024 08:44
[2024-04-01] MEDS: OSELTAMIVIR 75 MG CAP PO SCH (21:58)
[2024-04-02] VITALS (12 sets, daily range): BP systolic 107–128; BP diastolic 57–70; PULSE 63–85; RESP 14–20; TEMP 98.1–98.7; O2SAT 92–97
[2024-04-02] MEDS ORDERED: ALBUTEROL SULF 2.5 MG/0.5ML(0.5%) NEB SOLN NEB PRN (12:00)
[2024-04-02] MEDS ORDERED: IPRATROPIUM BROM 0.5 MG/2.5ML INH SOL NEB PRN (12:00)
[2024-04-02 13:28] LABS: Basophils # (auto) 0 10 ^3/uL (0-0.2); Basophils % (auto) 0.6 % (0.0-2.0); Eosinophils # (auto) 0.1 10 ^3/uL (0-0.8); Eosinophils % (auto) 4.1 % (0.0-7.0); Hemoglobin 12.7 g/dL (13.5-17.5); Lymphocytes # (auto) 0.8 10 ^3/uL (0.4-5.4); Lymphocytes % (auto) 24.2 % (10.0-50.0); Mean Corpuscular Hemoglobin 31.7 pg (28.0-32.0); Mean Corpuscular Hgb Conc. 34.3 g/dL (32.0-36.0); Mean Corpuscular Volume 92.3 fL (80.0-100.0); Monocytes # (auto) 0.5 10 ^3/uL (0-1.3); Monocytes % (auto) 16.7 % (0.0-12.0); Neutrophils # (auto) 1.8 10 ^3/uL (1.6-8.6); Neutrophils % (auto) 54.4 % (37.0-80.0); Nucleated Red Blood Cells % 0.1 %; Platelet Count (auto) 183 10^3/uL (140-450); Red Cell Distribution Width 13.1 % (11.8-14.3); White Blood Cell 3.3 10^3/uL (4.4-10.8)
[2024-04-02 13:34] LABS: Chloride 102 mmol/L (98-107)
[2024-04-02 13:35] LABS: Anion Gap 7 (5-15); Carbon Dioxide 24 mmol/L (20-31)
[2024-04-02 13:38] LABS: Calcium 8.6 mg/dL (8.7-10.4); Sodium 133 mmol/L (136-145)
[2024-04-02 13:40] LABS: BUN/Creatinine Ratio 9.2 (10.0-20.0); Blood Urea Nitrogen 11 mg/dL (9-23)
[2024-04-02 13:41] LABS: Magnesium 1.8 mg/dL (1.6-2.6)
[2024-04-02 13:42] LABS: Glucose 140 mg/dL (74-106)
[2024-04-02] MEDS: ACETAMINOPHEN 325 MG TAB PO PRN (14:18)
--- NOTE | 2024-04-02 19:24 | DVHPNRES ---
Progress Note Date Seen: Apr 02, 2024 Resident Creating Document: KAJAL CASAREZ RESIDENT Medical Necessity Reason Pt with a Central, PICC or Fol: No Subjective Review of Systems Patient is 78 years old male with past medical history of hypertension, diabetes mellitus type 2, hyperlipidemia, osteoarthritis of the knee, history of memory impairment was brought in by the EMS from [place] [facility] acute [facility] due to altered mental status. Patient is a poor historian. Information was gathered from ER documentation and also from patient's daughter Amna Elizondo. Patient was recently discharged from [facility] to a [facility] post acute care status post mechanical fall, status post metabolic encephalopathy. As per daughter yesterday patient had altered mental status, confusion, some dizziness and drowsiness, incoherent with poor appetite which prompted the family to bring her to the hospital. Patient and family denied any chest pain, dysuria, acute joint pain or swelling, abdominal pain. Initial lab workup revealed WBC 5.2, hemoglobin 13.7, sodium 132, potassium 4, serum creatinine 1.21, serum glucose 193, calcium 9.5, AST mildly elevated 94, serum bilirubin 0.9, ALT 94, troponin I 32. Chest x-ray revealed bilateral basilar infiltrate or atelectasis. CT head was negative for acute intracranial process.Patient tested positive for influenza type A. PMH-hypertension, diabetes mellitus type 2, hyperlipidemia, osteoarthritis of the knee, history of memory impairment Allergy-aspirin Personal History/ Social History- patient came from [place] post acute care, denies /alcoholism/drug abuse Patient was seen today at the bedside. Patient reports feeling tired Cardiovascular- deny acute chest pain or shortness of breath or cough or palpitation Respiratory- denies cough or short of breath or wheezing Gastrointestinal- denies any rectal bleeding, nausea or vomiting Musculoskeletal-denies acute joint swelling or tenderness or redness Neurological- denies acute dysarthria, dysphagia, change in vision Psychiatry- denies depression or SI or HI Skin- denies acute rash or purpura Patient is seen today for clinical evaluation. Labs and chart reviewed. Patient is clinically stable. Breathing well in room air. Patient clinically stable to be discharged to SNF. Objective vital signs Vital Sign Date Time Temp Pulse Resp B/P (MAP) Pulse Ox O2 Delivery O2 Flow Rate FiO2 04/02/24 16:56 98.2 79 14 128/59 (82) 95 98.2 04/02/24 07:50 Nasal Cannula* 2 28 Total Intake and Output 04/01/24 04/01/24 04/02/24 15:00 23:00 07:00 Intake Total 50 ml 600 ml 220 ml Output Total 500 ml 550 ml Balance 50 ml 100 ml -330 ml medications Current Medications Medications Dose Ordered Sig/Erika Route Start Time Stop Time Status Last Admin Dose Admin Atorvastatin Calcium 20 mg HS PO 03/30/24 22:00 04/01/24 21:58 20 MG Insulin Human Regular HS SC 03/30/24 22:00 04/01/24 22:07 2 UNITS Insulin Human Regular AC SC 03/30/24 17:00 04/02/24 17:00 3 UNITS Acetaminophen/ Hydrocodone Bitart 1 tab Q4HP PRN PO 03/30/24 16:30 Docusate Sodium 100 mg BIDPRN PRN PO 03/30/24 16:30 Acetaminophen 650 mg Q6HP PRN PO 03/30/24 16:30 04/02/24 14:18 650 MG Nitroglycerin 0.4 mg Q5MINP PRN SL 03/30/24 17:45 Pantoprazole Sodium 40 mg DAILY@0600 PO 04/01/24 06:00 04/02/24 06:11 40 MG Doxycycline Hyclate 250 ml @ 125 mls/hr Q12H IV 03/31/24 15:30 UNV Artificial Tears 1 drop Q6HP PRN EACHEYE 03/31/24 17:15 03/31/24 18:21 1 DROP Oseltamivir Phosphate 75 mg Q12HR PO 04/01/24 22:00 04/06/24 10:01 04/02/24 12:01 75 MG Amoxicillin/ Clavulanate Potassium 875 mg Q12HR PO 04/02/24 22:00 Doxycycline Monohydrate 100 mg Q12HR PO 04/02/24 22:00 Albuterol 2.5 mg Q6HR PRN NEB 04/02/24 12:00 Ipratropium [place] 0.5 mg Q6HR PRN NEB 04/02/24 12:00 Examination General examination- patient's confusion, awake, conversant HEENT- PEERLA, no acute nasal discharge Cardiovascular- S1-S2 audible, rate and rhythm regular, no murmur Respiratory-CTAB, no wheezing Gastrointestinal-nontender, bowel sound+. Nondistended Musculoskeletal-no acute joint swelling or tenderness or redness# Lower extremity- leg edema Neurological- cranial nerves intact, no acute dysarthria or dysphagia Psychiatry- AAOX4 Skin- fragile skin laboratory and microbiology Laboratory Tests 04/02/24 13:10 Test 04/02/24 13:10 Range/Units Serum Glucose 140 H 74-106 mg/dL Microbiology Date/Time Source Procedure Growth Status 03/31/24 18:28 Voided Urine Urine Culture - Preliminary Resulted 03/31/24 13:28 Blood Blood Culture - Preliminary NO GROWTH AFTER 48 HOURS OF INCUBATION. Resulted 03/31/24 04:30 Nose MRSA Screen - Final Complete Problem List/Assessment/Plan Problem List/Assessment/Plan # Metabolic encephalopathy likely due to acute hypoxic respiratory failure due to pneumonia # acute hypoxic respiratory failure likely due to pneumonia Gram-positive versus Gram-negative # acute pneumonia Gram-positive versus Gram-negative # influenza type A # hypertension # diabetes mellitus type 2 # hyperlipidemia # osteoarthrosis of the knee '# obesity # memory impairment CT scan of the chest no acute intracranial process Chest x-ray bilateral basilar infiltrate or atelectasis Patient tested negative for COVID19 MRI of the brain without contrast -No acute intracranial process identified. Mild chronic microvascular ischemic changes. Acute sinusitis. Continue Augmentin 875 mg p.o. q.12 hours Continue doxycycline 100 mg p.o. b.i.d. Continue atorvastatin 20 mg p.o. q.h.s. Continue insulin sliding scale as prescribed Continue Tamiflu 75 mg p.o. b.i.d. Continue other medication as prescribed Patient clinically stable to be discharged to SNF. Diet-patient has lactose intolerance, mechanical soft, carbohydrate consistent diet Goals of care/advance care planning; FULL CODE; discussed with the patient >15 minutes PUD prophylaxis: Pantoprazole DVT prophylaxis: Plan discussed with Dr. Valverde, nursing staff, patient Total time spent on patient evaluation, chart review, assessment and plan, discussion discussion >30 minutes Plan discussed with: Patient Plan discussed with: Patient, Daughter (RN), Other My Orders My Orders Orders - KAJAL CASAREZ RESIDENT Procedure Category Date Status Time Discontinue Tele RAAD 04/02/24 In Process 09:51 Communication Order ORDERS 04/02/24 Transmitted 09:51 Transfer Orders XFER 04/02/24 Transmitted 09:53 Amoxicillin/Clavulanate PHA 04/02/24 In Process Tablet (Augmenti 22:00 Doxycycline Tablet PHA 04/02/24 In Process (Vibramycin Tablet) 22:00 Albuterol Medneb PHA 04/02/24 In Process (Ventolin Medneb) 12:00 Ipratropium Medneb PHA 04/02/24 In Process (Atrovent Medneb) 12:00 Date of Service: Apr 02, 2024 Billing Provider: NO VALVERDE MD Common Visit Codes: [id number] INP/OBS CARE(MOD) KAJAL CASAREZ RESIDENT Apr 02, 2024 19:24 NO VALVERDE MD Apr 03, 2024 10:35
[2024-04-02] MEDS: DOXYCYCLINE 100 MG TAB/CAP PO SCH (21:30)
[2024-04-02] MEDS: AMOXICILLIN/CLAVUL 875 MG TAB PO SCH (21:30)
[2024-04-03] VITALS (10 sets, daily range): BP systolic 113–132; BP diastolic 50–71; PULSE 77–81; RESP 17–20; TEMP 97.2–98.1; O2SAT 92–97
[2024-04-03] MEDS: ENOXAPARIN SOD 40 MG/0.4 ML SYRINGE SC SCH (12:05)
--- NOTE | 2024-04-03 14:54 | DVHPNRES ---
Progress Note Date Seen: Apr 03, 2024 Resident Creating Document: KAJAL CASAREZ RESIDENT Medical Necessity Reason Pt with a Central, PICC or Fol: No Subjective Review of Systems Patient is 78 years old male with past medical history of hypertension, diabetes mellitus type 2, hyperlipidemia, osteoarthritis of the knee, history of memory impairment was brought in by the EMS from [facility] acute [facility] due to altered mental status. Patient is a poor historian. Information was gathered from ER documentation and also from patient's daughter Amna Elizondo. Patient was recently discharged from [facility] to a [facility] post acute care status post mechanical fall, status post metabolic encephalopathy. As per daughter yesterday patient had altered mental status, confusion, some dizziness and drowsiness, incoherent with poor appetite which prompted the family to bring her to the hospital. Patient and family denied any chest pain, dysuria, acute joint pain or swelling, abdominal pain. Initial lab workup revealed WBC 5.2, hemoglobin 13.7, sodium 132, potassium 4, serum creatinine 1.21, serum glucose 193, calcium 9.5, AST mildly elevated 94, serum bilirubin 0.9, ALT 94, troponin I 32. Chest x-ray revealed bilateral basilar infiltrate or atelectasis. CT head was negative for acute intracranial process.Patient tested positive for influenza type A. PMH-hypertension, diabetes mellitus type 2, hyperlipidemia, osteoarthritis of the knee, history of memory impairment Allergy-aspirin Personal History/ Social History- patient came from [facility], denies /alcoholism/drug abuse Patient was seen today at the bedside. Patient reports feeling tired Cardiovascular- deny acute chest pain or shortness of breath or cough or palpitation Respiratory- denies cough or short of breath or wheezing Gastrointestinal- denies any rectal bleeding, nausea or vomiting Musculoskeletal-denies acute joint swelling or tenderness or redness Neurological- denies acute dysarthria, dysphagia, change in vision Psychiatry- denies depression or SI or HI Skin- denies acute rash or purpura Patient is seen today for clinical evaluation. Labs and chart reviewed. Patient is clinically stable. No fever in last 24 hours.. Patient clinically stable to be discharged to SNF. Objective vital signs Vital Sign Date Time Temp Pulse Resp B/P (MAP) Pulse Ox O2 Delivery O2 Flow Rate FiO2 04/03/24 12:59 98.0 78 17 126/50 (75) 92 98.0 04/03/24 08:00 Nasal Cannula* 2 28 Total Intake and Output 04/02/24 04/02/24 04/03/24 15:00 23:00 07:00 Intake Total 400 ml 250 ml 600 ml Output Total 550 ml 650 ml Balance 400 ml -300 ml -50 ml medications Current Medications Medications Dose Ordered Sig/Erika Route Start Time Stop Time Status Last Admin Dose Admin Atorvastatin Calcium 20 mg HS PO 03/30/24 22:00 04/02/24 21:30 20 MG Insulin Human Regular HS SC 03/30/24 22:00 04/02/24 21:44 2 UNITS Insulin Human Regular AC SC 03/30/24 17:00 04/03/24 12:26 2 UNITS Acetaminophen/ Hydrocodone Bitart 1 tab Q4HP PRN PO 03/30/24 16:30 Docusate Sodium 100 mg BIDPRN PRN PO 03/30/24 16:30 Acetaminophen 650 mg Q6HP PRN PO 03/30/24 16:30 04/02/24 14:18 650 MG Nitroglycerin 0.4 mg Q5MINP PRN SL 03/30/24 17:45 Pantoprazole Sodium 40 mg DAILY@0600 PO 04/01/24 06:00 04/03/24 06:05 40 MG Doxycycline Hyclate 250 ml @ 125 mls/hr Q12H IV 03/31/24 15:30 UNV Artificial Tears 1 drop Q6HP PRN EACHEYE 03/31/24 17:15 03/31/24 18:21 1 DROP Oseltamivir Phosphate 75 mg Q12HR PO 04/01/24 22:00 04/06/24 10:01 04/03/24 09:06 75 MG Amoxicillin/ Clavulanate Potassium 875 mg Q12HR PO 04/02/24 22:00 04/03/24 09:06 875 MG Doxycycline Monohydrate 100 mg Q12HR PO 04/02/24 22:00 04/03/24 09:06 100 MG Albuterol 2.5 mg Q6HR PRN NEB 04/02/24 12:00 Ipratropium [place] 0.5 mg Q6HR PRN NEB 04/02/24 12:00 Enoxaparin Sodium 40 mg DAILY SC 04/03/24 10:00 04/03/24 12:05 40 MG Examination General examination- , awake, conversant, conversant HEENT- PEERLA, no acute nasal discharge Cardiovascular- S1-S2 audible, rate and rhythm regular, no murmur Respiratory-CTAB, no wheezing Gastrointestinal-nontender, bowel sound+. Nondistended Musculoskeletal-no acute joint swelling or tenderness or redness# Lower extremity- leg edema Neurological- cranial nerves intact, no acute dysarthria or dysphagia Psychiatry- AAOX4 Skin- fragile skin laboratory and microbiology Laboratory Tests 04/02/24 13:10 Test 04/02/24 13:10 Range/Units Serum Glucose 140 H 74-106 mg/dL Microbiology Date/Time Source Procedure Growth Status 03/31/24 18:28 Voided Urine Urine Culture - Final Complete 03/31/24 13:28 Blood Blood Culture - Preliminary NO GROWTH AFTER 72 HOURS OF INCUBATION. Resulted 03/31/24 04:30 Nose MRSA Screen - Final Complete Problem List/Assessment/Plan Problem List/Assessment/Plan # Metabolic encephalopathy likely due to acute hypoxic respiratory failure due to pneumonia # acute hypoxic respiratory failure likely due to pneumonia Gram-positive versus Gram-negative # acute pneumonia Gram-positive versus Gram-negative # influenza type A # hypertension # diabetes mellitus type 2 # hyperlipidemia # osteoarthrosis of the knee '# obesity # memory impairment CT scan of the chest no acute intracranial process Chest x-ray bilateral basilar infiltrate or atelectasis Patient tested negative for COVID19 MRI of the brain without contrast -No acute intracranial process identified. Mild chronic microvascular ischemic changes. Acute sinusitis. Continue Augmentin 875 mg p.o. q.12 hours Continue doxycycline 100 mg p.o. b.i.d. Continue atorvastatin 20 mg p.o. q.h.s. Continue insulin sliding scale as prescribed Continue Tamiflu 75 mg p.o. b.i.d. Continue other medication as prescribed Patient clinically stable to be discharged to SNF. Diet-patient has lactose intolerance, mechanical soft, carbohydrate consistent diet Goals of care/advance care planning; FULL CODE; discussed with the patient >15 minutes PUD prophylaxis: Pantoprazole DVT prophylaxis: Plan discussed with Dr. Valverde, nursing staff, patient Total time spent on patient evaluation, chart review, assessment and plan, discussion discussion >30 minutes Plan discussed with: Patient Plan discussed with: Patient, Other (RN) My Orders My Orders Orders - BABU,MOHAMMED RESIDENT Procedure Category Date Status Time * Microbiology Laboratory Manager CONS 04/02/24 Transmitted Consult Enoxaparin Sodium PHA 04/03/24 In Process (Lovenox) 10:00 Date of Service: Apr 03, 2024 Billing Provider: NO VALVERDE MD Common Visit Codes: [id number] INP/OBS CARE(MOD) HERMELINDOKAJAL RESIDENT Apr 03, 2024 14:54 NO VALVERDE MD Apr 04, 2024 10:26
[2024-04-04] VITALS (8 sets, daily range): BP systolic 113–137; BP diastolic 49–68; PULSE 75–85; RESP 18–20; TEMP 97.9–98.9; O2SAT 92–96
--- NOTE | 2024-04-04 16:25 | DVHPNRES ---
Progress Note Date Seen: Apr 04, 2024 Resident Creating Document: KENDAL YOUNG RESIDENT Medical Necessity Reason Pt with a Central, PICC or Fol: No Subjective Review of Systems Patient is 78 years old male with past medical history of hypertension, diabetes mellitus type 2, hyperlipidemia, osteoarthritis of the knee, history of memory impairment was brought in by the EMS from [facility] acute [facility] due to altered mental status. Patient is a poor historian. Information was gathered from ER documentation and also from patient's daughter Amna Elizondo. [facility] post [facility], status post metabolic encephalopathy. As per daughter yesterday patient had altered mental status, confusion, some dizziness and drowsiness, incoherent with poor appetite which prompted the family to bring her to the hospital. Patient and family denied any chest pain, dysuria, acute joint pain or swelling, abdominal pain. Initial lab workup revealed WBC 5.2, hemoglobin 13.7, sodium 132, potassium 4, serum creatinine 1.21, serum glucose 193, calcium 9.5, AST mildly elevated 94, serum bilirubin 0.9, ALT 94, troponin I 32. Chest x-ray revealed bilateral basilar infiltrate or atelectasis. CT head was negative for acute intracranial process.Patient tested positive for influenza type A. PMH-hypertension, diabetes mellitus type 2, hyperlipidemia, osteoarthritis of the knee, history of memory impairment Allergy-aspirin Personal History/ Social History- patient came from [facility], denies /alcoholism/drug abuse Patient was seen today at the bedside. Patient reports feeling tired Cardiovascular- deny acute chest pain or shortness of breath or cough or palpitation Respiratory- denies cough or short of breath or wheezing Gastrointestinal- denies any rectal bleeding, nausea or vomiting Musculoskeletal-denies acute joint swelling or tenderness or redness Neurological- denies acute dysarthria, dysphagia, change in vision Psychiatry- denies depression or SI or HI Skin- denies acute rash or purpura Patient is seen today for clinical evaluation. Labs and chart reviewed. Patient is clinically stable. No fever in last 24 hours.. Patient clinically stable to be discharged to SNF. Objective vital signs Vital Sign Date Time Temp Pulse Resp B/P (MAP) Pulse Ox O2 Delivery O2 Flow Rate FiO2 04/04/24 12:49 98.2 83 20 132/51 (78) 95 98.2 04/04/24 08:09 Nasal Cannula* 2 28 Total Intake and Output 04/03/24 04/03/24 04/04/24 15:00 23:00 07:00 Intake Total 718 ml 600 ml Output Total 300 ml 450 ml Balance 418 ml 150 ml medications Current Medications Medications Dose Ordered Sig/Erika Route Start Time Stop Time Status Last Admin Dose Admin Atorvastatin Calcium 20 mg HS PO 03/30/24 22:00 04/03/24 21:52 20 MG Insulin Human Regular HS SC 03/30/24 22:00 04/02/24 21:44 2 UNITS Insulin Human Regular AC SC 03/30/24 17:00 04/04/24 11:48 2 UNITS Acetaminophen/ Hydrocodone Bitart 1 tab Q4HP PRN PO 03/30/24 16:30 Docusate Sodium 100 mg BIDPRN PRN PO 03/30/24 16:30 Acetaminophen 650 mg Q6HP PRN PO 03/30/24 16:30 04/02/24 14:18 650 MG Nitroglycerin 0.4 mg Q5MINP PRN SL 03/30/24 17:45 Pantoprazole Sodium 40 mg DAILY@0600 PO 04/01/24 06:00 04/04/24 06:18 40 MG Doxycycline Hyclate 250 ml @ 125 mls/hr Q12H IV 03/31/24 15:30 UNV Artificial Tears 1 drop Q6HP PRN EACHEYE 03/31/24 17:15 03/31/24 18:21 1 DROP Oseltamivir Phosphate 75 mg Q12HR PO 04/01/24 22:00 04/06/24 10:01 04/04/24 08:56 75 MG Amoxicillin/ Clavulanate Potassium 875 mg Q12HR PO 04/02/24 22:00 04/04/24 08:56 875 MG Doxycycline Monohydrate 100 mg Q12HR PO 04/02/24 22:00 04/04/24 08:56 100 MG Albuterol 2.5 mg Q6HR PRN NEB 04/02/24 12:00 Cancel Ipratropium [place] 0.5 mg Q6HR PRN NEB 04/02/24 12:00 Cancel Enoxaparin Sodium 40 mg DAILY SC 04/03/24 10:00 04/04/24 08:56 40 MG Examination General examination- , awake, conversant, conversant HEENT- PEERLA, no acute nasal discharge Cardiovascular- S1-S2 audible, rate and rhythm regular, no murmur Respiratory-CTAB, no wheezing Gastrointestinal-nontender, bowel sound+. Nondistended Musculoskeletal-no acute joint swelling or tenderness or redness# Lower extremity- leg edema Neurological- cranial nerves intact, no acute dysarthria or dysphagia Psychiatry- AAOX4 Skin- fragile skin laboratory and microbiology Laboratory Tests 04/02/24 13:10 Test 04/02/24 13:10 Range/Units Serum Glucose 140 H 74-106 mg/dL Microbiology Date/Time Source Procedure Growth Status 03/31/24 18:28 Voided Urine Urine Culture - Final Complete 03/31/24 13:28 Blood Blood Culture - Preliminary NO GROWTH AFTER 72 HOURS OF INCUBATION. Resulted 03/31/24 04:30 Nose MRSA Screen - Final Complete Problem List/Assessment/Plan Problem List/Assessment/Plan # Metabolic encephalopathy likely due to acute hypoxic respiratory failure due to pneumonia # acute hypoxic respiratory failure likely due to pneumonia Gram-positive versus Gram-negative # acute pneumonia Gram-positive versus Gram-negative # influenza type A # hypertension # diabetes mellitus type 2 # hyperlipidemia # osteoarthrosis of the knee '# obesity # memory impairment CT scan of the chest no acute intracranial process Chest x-ray bilateral basilar infiltrate or atelectasis Patient tested negative for COVID19 MRI of the brain without contrast -No acute intracranial process identified. Mild chronic microvascular ischemic changes. Acute sinusitis. Continue Augmentin 875 mg p.o. q.12 hours Continue doxycycline 100 mg p.o. b.i.d. Continue atorvastatin 20 mg p.o. q.h.s. Continue insulin sliding scale as prescribed Continue Tamiflu 75 mg p.o. b.i.d. Continue other medication as prescribed Patient's vitals it is within normal limit, laboratory works including WBCs within normal limit, little indication to continue inpatient treatment. Patient clinically stable to be discharged to SNF. Diet-patient has lactose intolerance, mechanical soft, carbohydrate consistent diet Goals of care/advance care planning; FULL CODE; discussed with the patient >15 minutes PUD prophylaxis: Pantoprazole DVT prophylaxis: Plan discussed with Dr. Miller Plan discussed with: Patient Date of Service: Apr 04, 2024 Billing Provider: CAMERON MILLER MD Common Visit Codes: [id number] INP/OBS CARE(MOD) KENDAL YOUNG RESIDENT Apr 04, 2024 16:25 CAMERON MILLER MD Apr 05, 2024 16:57
[2024-04-04] MEDS: DOCUSATE SOD 100 MG CAP PO PRN (21:23)
[2024-04-05] VITALS (7 sets, daily range): BP systolic 102–127; BP diastolic 54–72; PULSE 72–101; RESP 14–21; TEMP 97.8–98.4; O2SAT 90–96
--- NOTE | 2024-04-05 18:12 | DVHPNRES ---
Progress Note Date Seen: Apr 05, 2024 Resident Creating Document: KAJAL CASAREZ RESIDENT Medical Necessity Reason Pt with a Central, PICC or Fol: No Subjective Review of Systems Patient is 78 years old male with past medical history of hypertension, diabetes mellitus type 2, hyperlipidemia, osteoarthritis of the knee, history of memory impairment was brought in by the EMS from [facility] acute [facility] due to altered mental status. Patient is a poor historian. Information was gathered from ER documentation and also from patient's daughter Amna Elizondo. Patient was recently discharged from [facility] to a [facility] post acute care status post mechanical fall, status post metabolic encephalopathy. As per daughter yesterday patient had altered mental status, confusion, some dizziness and drowsiness, incoherent with poor appetite which prompted the family to bring her to the hospital. Patient and family denied any chest pain, dysuria, acute joint pain or swelling, abdominal pain. Initial lab workup revealed WBC 5.2, hemoglobin 13.7, sodium 132, potassium 4, serum creatinine 1.21, serum glucose 193, calcium 9.5, AST mildly elevated 94, serum bilirubin 0.9, ALT 94, troponin I 32. Chest x-ray revealed bilateral basilar infiltrate or atelectasis. CT head was negative for acute intracranial process.Patient tested positive for influenza type A. PMH-hypertension, diabetes mellitus type 2, hyperlipidemia, osteoarthritis of the knee, history of memory impairment Allergy-aspirin Personal History/ Social History- patient came from [facility] acute [facility], denies /alcoholism/drug abuse Patient was seen today at the bedside. Patient reports feeling tired Cardiovascular- deny acute chest pain or shortness of breath or cough or palpitation Respiratory- denies cough or short of breath or wheezing Gastrointestinal- denies any rectal bleeding, nausea or vomiting Musculoskeletal-denies acute joint swelling or tenderness or redness Neurological- denies acute dysarthria, dysphagia, change in vision Psychiatry- denies depression or SI or HI Skin- denies acute rash or purpura Patient is seen today for clinical evaluation. Labs and chart reviewed. No new complaint. Provider spoke to patient's daughter at bedside and answered her question. Patient clinically stable to be discharged to SNF. Objective vital signs Vital Sign Date Time Temp Pulse Resp B/P (MAP) Pulse Ox O2 Delivery O2 Flow Rate FiO2 04/05/24 17:00 97.8 89 19 102/63 (76) 90 97.8 04/05/24 08:00 Nasal Cannula* 2 28 Total Intake and Output 04/04/24 04/04/24 04/05/24 15:00 23:00 07:00 Intake Total 200 ml 800 ml Output Total 50 ml Balance 150 ml 800 ml medications Current Medications Medications Dose Ordered Sig/Erika Route Start Time Stop Time Status Last Admin Dose Admin Atorvastatin Calcium 20 mg HS PO 03/30/24 22:00 04/04/24 21:02 20 MG Insulin Human Regular HS SC 03/30/24 22:00 04/02/24 21:44 2 UNITS Insulin Human Regular AC SC 03/30/24 17:00 04/05/24 11:50 3 UNITS Acetaminophen/ Hydrocodone Bitart 1 tab Q4HP PRN PO 03/30/24 16:30 Docusate Sodium 100 mg BIDPRN PRN PO 03/30/24 16:30 04/04/24 21:23 100 MG Acetaminophen 650 mg Q6HP PRN PO 03/30/24 16:30 04/02/24 14:18 650 MG Nitroglycerin 0.4 mg Q5MINP PRN SL 03/30/24 17:45 Pantoprazole Sodium 40 mg DAILY@0600 PO 04/01/24 06:00 04/05/24 05:51 40 MG Doxycycline Hyclate 250 ml @ 125 mls/hr Q12H IV 03/31/24 15:30 UNV Artificial Tears 1 drop Q6HP PRN EACHEYE 03/31/24 17:15 03/31/24 18:21 1 DROP Oseltamivir Phosphate 75 mg Q12HR PO 04/01/24 22:00 04/06/24 10:01 04/05/24 09:17 75 MG Amoxicillin/ Clavulanate Potassium 875 mg Q12HR PO 04/02/24 22:00 04/05/24 09:17 875 MG Doxycycline Monohydrate 100 mg Q12HR PO 04/02/24 22:00 04/05/24 09:17 100 MG Albuterol 2.5 mg Q6HR PRN NEB 04/02/24 12:00 Cancel Ipratropium [place] 0.5 mg Q6HR PRN NEB 04/02/24 12:00 Cancel Enoxaparin Sodium 40 mg DAILY SC 04/03/24 10:00 04/05/24 09:18 40 MG laboratory and microbiology Laboratory Tests 04/02/24 13:10 Test 04/02/24 13:10 Range/Units Serum Glucose 140 H 74-106 mg/dL Microbiology Date/Time Source Procedure Growth Status 03/31/24 18:28 Voided Urine Urine Culture - Final Complete 03/31/24 13:28 Blood Blood Culture - Final NO GROWTH AFTER 5 DAYS OF INCUBATION. Complete 03/31/24 04:30 Nose MRSA Screen - Final Complete Problem List/Assessment/Plan Problem List/Assessment/Plan # Metabolic encephalopathy likely due to acute hypoxic respiratory failure due to pneumonia # acute hypoxic respiratory failure likely due to pneumonia Gram-positive versus Gram-negative # acute pneumonia Gram-positive versus Gram-negative # influenza type A # hypertension # diabetes mellitus type 2 # hyperlipidemia # osteoarthrosis of the knee '# obesity # memory impairment CT scan of the chest no acute intracranial process Chest x-ray bilateral basilar infiltrate or atelectasis Patient tested negative for COVID19 MRI of the brain without contrast -No acute intracranial process identified. Mild chronic microvascular ischemic changes. Acute sinusitis. Continue Augmentin 875 mg p.o. q.12 hours Continue doxycycline 100 mg p.o. b.i.d. Continue atorvastatin 20 mg p.o. q.h.s. Continue insulin sliding scale as prescribed Continue Tamiflu 75 mg p.o. b.i.d. Continue other medication as prescribed Patient clinically stable to be discharged to SNF. Diet-patient has lactose intolerance, mechanical soft, carbohydrate consistent diet Goals of care/advance care planning; FULL CODE; discussed with the patient >15 minutes PUD prophylaxis: Pantoprazole DVT prophylaxis: Plan discussed with Dr. Carroll, nursing staff, patient Total time spent on patient evaluation, chart review, assessment and plan, discussion discussion >30 minutes Plan discussed with: Patient Plan discussed with: Patient, Daughter, Other (RN) Date of Service: Apr 05, 2024 Billing Provider: MARILYN DE LUNA MD Common Visit Codes: [id number] INP/OBS CARE(HIGH) KAJAL CASAREZ RESIDENT Apr 05, 2024 18:12 MARILYN DE LUNA MD Apr 06, 2024 14:12
[2024-04-06 01:00] VITALS: BP 121/59; PULSE 70; RESP 18; TEMP 98.2; O2SAT 92
[2024-04-06 05:00] VITALS: BP 136/70; PULSE 80; RESP 18; TEMP 98.2; O2SAT 94
[2024-04-06 08:00] VITALS: O2SAT 95
[2024-04-06 09:02] VITALS: BP 127/70; PULSE 79; RESP 19; TEMP 97.5; O2SAT 95
--- NOTE | 2024-04-06 14:15 | DVHPNRES ---
Progress Note Date Seen: Apr 06, 2024 Resident Creating Document: KAJAL CASAREZ RESIDENT Medical Necessity Reason Pt with a Central, PICC or Fol: No Subjective Review of Systems Patient is 78 years old male with past medical history of hypertension, diabetes mellitus type 2, hyperlipidemia, osteoarthritis of the knee, history of memory impairment was brought in by the EMS from [facility] acute care due to altered mental status. Patient is a poor historian. Information was gathered from ER documentation and also from patient's daughter Amna Elizondo. Patient was recently discharged from [facility] to a [facility] post acute care status post mechanical fall, status post metabolic encephalopathy. As per daughter yesterday patient had altered mental status, confusion, some dizziness and drowsiness, incoherent with poor appetite which prompted the family to bring her to the hospital. Patient and family denied any chest pain, dysuria, acute joint pain or swelling, abdominal pain. Initial lab workup revealed WBC 5.2, hemoglobin 13.7, sodium 132, potassium 4, serum creatinine 1.21, serum glucose 193, calcium 9.5, AST mildly elevated 94, serum bilirubin 0.9, ALT 94, troponin I 32. Chest x-ray revealed bilateral basilar infiltrate or atelectasis. CT head was negative for acute intracranial process.Patient tested positive for influenza type A. PMH-hypertension, diabetes mellitus type 2, hyperlipidemia, osteoarthritis of the knee, history of memory impairment Allergy-aspirin Personal History/ Social History- patient came from [facility], denies /alcoholism/drug abuse Patient was seen today at the bedside. Patient reports feeling tired Cardiovascular- deny acute chest pain or shortness of breath or cough or palpitation Respiratory- denies cough or short of breath or wheezing Gastrointestinal- denies any rectal bleeding, nausea or vomiting Musculoskeletal-denies acute joint swelling or tenderness or redness Neurological- denies acute dysarthria, dysphagia, change in vision Psychiatry- denies depression or SI or HI Skin- denies acute rash or purpura Patient is seen today for clinical evaluation. Labs and chart reviewed. No new complaint. Provider spoke to patient's daughter at bedside and answered her question. For SNF to appropriately postop acute care hemodynamically stable condition today Objective vital signs Vital Sign Date Time Temp Pulse Resp B/P (MAP) Pulse Ox O2 Delivery O2 Flow Rate FiO2 04/06/24 09:02 97.5 79 19 127/70 (89) 95 97.5 04/06/24 08:00 Nasal Cannula* 2 28 Total Intake and Output 04/05/24 04/05/24 04/06/24 15:00 23:00 07:00 Intake Total 780 ml 55 ml Output Total 750 ml 300 ml Balance 30 ml -245 ml medications Current Medications Medications Dose Ordered Sig/Erika Route Start Time Stop Time Status Last Admin Dose Admin Doxycycline Hyclate 250 ml @ 125 mls/hr Q12H IV 03/31/24 15:30 UNV Albuterol 2.5 mg Q6HR PRN NEB 04/02/24 12:00 Cancel Ipratropium [place] 0.5 mg Q6HR PRN NEB 04/02/24 12:00 Cancel Examination # Metabolic encephalopathy likely due to acute hypoxic respiratory failure due to pneumonia # acute hypoxic respiratory failure likely due to pneumonia Gram-positive versus Gram-negative # acute pneumonia Gram-positive versus Gram-negative # influenza type A # hypertension # diabetes mellitus type 2 # hyperlipidemia # osteoarthrosis of the knee '# obesity # memory impairment laboratory and microbiology Laboratory Tests 04/02/24 13:10 Test 04/02/24 13:10 Range/Units Serum Glucose 140 H 74-106 mg/dL Microbiology Date/Time Source Procedure Growth Status 03/31/24 18:28 Voided Urine Urine Culture - Final Complete 03/31/24 13:28 Blood Blood Culture - Final NO GROWTH AFTER 5 DAYS OF INCUBATION. Complete 03/31/24 04:30 Nose MRSA Screen - Final Complete Problem List/Assessment/Plan Problem List/Assessment/Plan # Metabolic encephalopathy likely due to acute hypoxic respiratory failure due to pneumonia # acute hypoxic respiratory failure likely due to pneumonia Gram-positive versus Gram-negative # acute pneumonia Gram-positive versus Gram-negative # influenza type A # hypertension # diabetes mellitus type 2 # hyperlipidemia # osteoarthrosis of the knee '# obesity # memory impairment CT scan of the chest no acute intracranial process Chest x-ray bilateral basilar infiltrate or atelectasis Patient tested negative for COVID19 MRI of the brain without contrast -No acute intracranial process identified. Mild chronic microvascular ischemic changes. Acute sinusitis. Continue Augmentin 875 mg p.o. q.12 hours Continue doxycycline 100 mg p.o. b.i.d. Continue atorvastatin 20 mg p.o. q.h.s. Continue insulin sliding scale as prescribed Continue Tamiflu 75 mg p.o. b.i.d. Continue other medication as prescribed Patient clinically stable to be discharged to SNF. Diet-patient has lactose intolerance, mechanical soft, carbohydrate consistent diet Goals of care/advance care planning; FULL CODE; discussed with the patient >15 minutes PUD prophylaxis: Pantoprazole DVT prophylaxis: Plan discussed with Dr. Carroll, nursing staff, patient Total time spent on patient evaluation, chart review, assessment and plan, discussion discussion >30 minutes Plan discussed with: Patient Plan discussed with: Patient, Daughter, Other (RN) Date of Service: Apr 06, 2024 Billing Provider: MARILYN DE LUNA MD Common Visit Codes: [id number] INP/OBS CARE(MOD) KAJAL CASAREZ RESIDENT Apr 06, 2024 14:15 MARILYN DE LUNA MD Apr 06, 2024 23:34
--- NOTE | 2024-04-12 14:22 | DVHDSRES ---
Discharge Summary Date of Admission Resident Creating Document: KAJAL CASAREZ Mar 30, 2024 at 17:33 Date of Discharge: Apr 06, 2024 Admitting Diagnosis Metabolic encephalopathy and Acute hypoxic respiratory failure Labs/Diagnostic Data: Laboratory Results Test 04/06/24 05:41 04/02/24 13:10 04/01/24 04:41 03/31/24 12:08 POC Glucose 126 mg/dl (70-106) White Blood Count 3.3 10^3/uL (4.4-10.8) Red Blood Count 4.00 10^6/uL (4.5-5.90) Hemoglobin 12.7 g/dL (13.5-17.5) Hematocrit 37.0 % (41.0-53.0) Mean Corpuscular Volume 92.3 fL (80.0-100.0) Mean Corpuscular Hemoglobin 31.7 pg (28.0-32.0) Mean Corpuscular Hemoglobin Concent 34.3 g/dL (32.0-36.0) Red Cell Distribution Width 13.1 % (11.8-14.3) Platelet Count 183 10^3/uL (140-450) Mean Platelet Volume 7.2 fL (6.9-10.8) Neutrophils (%) (Auto) 54.4 % (37.0-80.0) Lymphocytes (%) (Auto) 24.2 % (10.0-50.0) Monocytes (%) (Auto) 16.7 % (0.0-12.0) Eosinophils (%) (Auto) 4.1 % (0.0-7.0) Basophils (%) (Auto) 0.6 % (0.0-2.0) Neutrophils # (Auto) 1.8 10 ^3/uL (1.6-8.6) Lymphocytes # (Auto) 0.8 10 ^3/uL (0.4-5.4) Monocytes # (Auto) 0.5 10 ^3/uL (0-1.3) Eosinophils # (Auto) 0.1 10 ^3/uL (0-0.8) Basophils # (Auto) 0 10 ^3/uL (0-0.2) Nucleated Red Blood Cells 0.1 % Sodium Level 133 mmol/L (136-145) Potassium Level 4.0 mmol/L (3.5-5.1) Chloride Level 102 mmol/L (98-107) Carbon Dioxide Level 24 mmol/L (20-31) Anion Gap 7 (5-15) Blood Urea Nitrogen 11 mg/dL (9-23) Creatinine 1.19 mg/dL (0.700-1.30) Glomerular Filtration Rate Calc 62 mL/min (>90) BUN/Creatinine Ratio 9.2 (10.0-20.0) Serum Glucose 140 mg/dL (74-106) Calcium Level 8.6 mg/dL (8.7-10.4) Magnesium Level 1.8 mg/dL (1.6-2.6) Total Bilirubin 0.6 mg/dL (0.2-1.0) Aspartate Amino Transferase (AST) 69 U/L (13-40) Alanine Aminotransferase (ALT) 25 U/L (7-40) Alkaline Phosphatase 64 U/L (46-116) B-Type Natriuretic Peptide 38.75 pg/mL (0-100) Total Protein 5.6 g/dL (5.7-8.2) Albumin 3.2 g/dL (3.2-4.8) Vitamin B12 Level 1291 pg/mL (211-911) Vitamin D 25-Hydroxy 38.3 ng/mL (30.0-100) Folic Acid 6.37 ng/mL (>5.38) Test 03/31/24 11:18 03/31/24 05:20 03/31/24 04:40 03/30/24 16:50 Influenza Type A Antigen Positive (Negative) Influenza Type B Antigen Negative (Negative) Thyroid Stimulating Hormone (TSH) 1.58 uIU/mL (0.55-4.78) SARS-CoV-2 Antigen (Rapid) Negative (NEGATIVE) Urine Color Light-yellow (Yellow) Urine Clarity Clear (Clear) Urine pH 6.0 (5.0-9.0) Urine Specific [place] 1.018 (1.001-1.035) Urine Protein 1+ (Negative) Urine Ketones 2+ (Negative) Urine Blood 3+ /uL (Negative) Urine Nitrite Negative (Negative) Urine Bilirubin Negative (Negative) Urine Urobilinogen Normal mg/dL (Negative) Urine Leukocyte Esterase Negative /uL (Negative) Urine RBC 1 /hpf (0 - 3) Urine WBC 1 /hpf (0 - 3) Urine Squamous Epithelial Cells None seen /hpf (<5) Urine Bacteria None seen /hpf (None Seen) Urine Glucose Trace mg/dL (Normal) Test 03/30/24 14:50 Troponin I High Sensitivity 32 ng/L (</=54) Plasma/Serum Blood Alcohol 3.3 mg/dL (<10) Other Laboratory Tests 04/02/24 13:10 Brief Hx & Hospital Course: Patient is 78 years old male with past medical history of hypertension, diabetes mellitus type 2, hyperlipidemia, osteoarthritis of the knee, history of memory impairment was brought in by the EMS from [facility] acute care due to altered mental status. Patient is a poor historian. Information was gathered from ER documentation and also from patient's daughter Amna Elizondo. Patient was recently discharged from [facility] to a [facility] acute care status post mechanical fall, status post metabolic encephalopathy. As per daughter yesterday patient had altered mental status, confusion, some dizziness and drowsiness, incoherent with poor appetite which prompted the family to bring her to the hospital. Patient and family denied any chest pain, dysuria, acute joint pain or swelling, abdominal pain. Initial lab workup revealed WBC 5.2, hemoglobin 13.7, sodium 132, potassium 4, serum creatinine 1.21, serum glucose 193, calcium 9.5, AST mildly elevated 94, serum bilirubin 0.9, ALT 94, troponin I 32. Chest x-ray revealed bilateral basilar infiltrate or atelectasis. CT head was negative for acute intracranial process.Patient tested positive for influenza type A. During hospital course patient was treated conservatively. Patient's symptom improved. Patient was treated with IV antibiotic ceftriaxone and doxycycline. Patient was discharged to SNF with oral antibiotic doxycycline. Patient was hemodynamically stable on discharge. Patient's meds were sent to the pharmacy electronically. Patient is to follow up with the MD at SNF. PMH-hypertension, diabetes mellitus type 2, hyperlipidemia, osteoarthritis of the knee, history of memory impairment. Allergy-aspirin Personal History/ Social History- patient came from [facility] acute care, denies /alcoholism/drug abuse Patient was seen today at the bedside. Cardiovascular- deny acute chest pain or shortness of breath or cough or palpitation Respiratory- denies cough or short of breath or wheezing Gastrointestinal- denies any rectal bleeding, nausea or vomiting Musculoskeletal-denies acute joint swelling or tenderness or redness Neurological- denies acute dysarthria, dysphagia, change in vision Psychiatry- denies depression or SI or HI Skin- denies acute rash or purpura Operations or Procedures DIAGNOSTIC IMAGING Diagnostic Imaging Report : [id number] Signed PATIENT: CHRISSY CHILD ACCT: [id number] UNIT: [id number] : 1945 LOC: [facility] ROOM / BED: 0276T / B AGE / SEX: 78 / M ADM STATUS: ADM IN SERVICE 0700 ORDERING PHYSICIAN: KAJAL CASAREZ RESIDENT PROCEDURE(s): MBHL - BRAIN HEAD WO CONTRAST REASON: RULE OUT CVA, ORDER NUMBER(s): [id number], ACCESSION NUMBER(s): [id number] EXAM: MRI BRAIN HEAD WO CONTRAST HISTORY: RULE OUT CVA, COMPARISON: None TECHNIQUE: MRI was performed utilizing multiple appropriate imaging planes and pulse sequences. FINDINGS: SUPRATENTORIAL REGION: No evidence for acute ischemia or intracranial hemorrhage. Scattered ill-defined FLAIR hyperintensities are noted within the bilateral periventricular region, rodríguez radiata and subcortical white matter. POSTERIOR FOSSA: Unremarkable. BRAINSTEM: Unremarkable. SELLAR/SUPRASELLAR REGION: Unremarkable. VENTRICLES, CISTERNS, SULCI: Age-appropriate. ORBITS: Unremarkable. PARANASAL SINUSES: Moderate opacification of the ethmoid sinus. Air-fluid level noted in bilateral maxillary and frontal sinuses. Diffuse paranasal sinus mucosal thickening noted. MASTOID AIR CELLS: Unremarkable. VASCULATURE: Unremarkable. BONES/ SOFT TISSUES: Unremarkable. OTHER: None. IMPRESSION: 1. No acute intracranial process identified. 2. Mild chronic microvascular ischemic changes. 3. Acute sinusitis. ATED BY: PRITI PARIKH MD DICTATED DATE/TIME: 04/01/24 1259 SIGNED BY: PRITI PARIKH MD SIGNED DATE/TIME: 04/01/24 1259 CC: DIAGNOSTIC IMAGING Diagnostic Imaging Report : [id number] Signed PATIENT: CHRISSY CHILD ACCT: [id number] UNIT: [id number] : 1945 LOC: [facility] ROOM / BED: [facility] / A AGE / SEX: 78 / M ADM STATUS: ADM IN SERVICE 99 ORDERING PHYSICIAN: PRATIBHA JIMÉNEZ DNP PROCEDURE(s): HWOCT - HEAD WITHOUT CONTRAST REASON: Altered mental status ORDER NUMBER(s): [id number], ACCESSION NUMBER(s): [id number] Procedure: CT HEAD WITHOUT CONTRAST Study Date and Requested Time: 03/30/2024 08:39 PM History: Altered mental status Comparison: CT head 03/26/2024 Dose: CTDI: 68.45 mGy DLP: 1348.62 mGycm Technique: Multiplanar images obtained through the brain without intravenous contrast. Findings: Moderate diffuse brain atrophy. Mild chronic small vessel ischemic changes. No hemorrhages, masses, mass effect, midline shift, herniation or cytotoxic edema following a large vascular territory. No intra-axial or extra-axial fluid collections. No evidence of hydrocephalus. The basal cisterns are patent. The pituitary gland, sella and parasellar regions are unremarkable. The cerebellar tonsils are in normal position. The cerebellum is unremarkable. Right lens replacement. Otherwise, orbits and globes are unremarkable. Pansinus mucoperiosteal thickening. The mastoids are clear. There are no worrisome calvarial lesions. Impression: No evidence of acute intracranial abnormality. If symptoms persist, consider MRI for further evaluation. Pansinus disease. ATED BY: ORIANA PEREZ DO DICTATED DATE/TIME: 03/30/242057 SIGNED BY: ORIANA PEREZ DO SIGNED DATE/TIME: 03/30/242057 CC: DIAGNOSTIC IMAGING Diagnostic Imaging Report : [id number] Signed PATIENT: CHRISSY CHILD ACCT: [id number] UNIT: [id number] : 1945 LOC: [facility] ROOM / BED: [address] [place] [address] AGE / SEX: 78 / M ADM STATUS: ADM IN SERVICE 99 ORDERING PHYSICIAN: PRATIBHA JIMÉNEZ DNP PROCEDURE(s): CXR1 - CHEST XRAY 1 VIEW REASON: Shortness of breaths ORDER NUMBER(s): [id number], ACCESSION NUMBER(s): [id number] CHEST RADIOGRAPH Indication: Shortness of breaths Technique: Single frontal view of the chest was obtained Comparison: None FINDINGS: Lines and Tubes: None Lungs: Bibasilar areas of infiltrate and atelectasis. Pleura: No effusion. No pneumothorax. Cardiomediastinal contours: Unremarkable Bones: No acute osseous abnormality. IMPRESSION: 1. Bibasilar areas of infiltrate and atelectasis. ATED BY: GAYATRI GARCIA Jr., DO DICTATED DATE/TIME: 03/30/242053 SIGNED BY: GAYATRI GARCIA Jr., SIGNED DATE/TIME: 03/30/242053 CC: Condition at Discharge: Stable Final Diagnosis/Problems List # Metabolic encephalopathy likely due to acute hypoxic respiratory failure due to pneumonia # acute hypoxic respiratory failure likely due to pneumonia Gram-positive versus Gram-negative # acute pneumonia Gram-positive versus Gram-negative # hypertension # diabetes mellitus type 2 # hyperlipidemia # osteoarthrosis of the knee '# obesity # memory impairment Discharge Disposition: [facility] Facility Discharge Instruct/Medications Diet: Consistent carbohydrate, Cardiac 2g Na,low cholest Activity: Light activity Follow Up/Referral: MD at SNF Medications: Doxycycline 100 mg p.o. b.i.d. for 7 days Discharge Statement: "Patient was advised to return to the ER or call 911 if any headaches, dizziness, shortness of breath, chest pain, abdominal pain, bleeding, fevers, or worsening of medical condition. Patient was counseled about treatment plan, medications, possible side effects, patientverbalized understanding. All questions were answered to the best of my ability. This discharge took greater then 30 minutes in planning, reviewing documentation, counseling the patient, and discussing with other team members." ASSESSMENT ASSESSMENT Assessment # Metabolic encephalopathy likely due to acute hypoxic respiratory failure due to pneumonia # acute hypoxic respiratory failure likely due to pneumonia Gram-positive versus Gram-negative # acute pneumonia Gram-positive versus Gram-negative # hypertension # diabetes mellitus type 2 # hyperlipidemia # osteoarthrosis of the knee '# obesity # memory impairment Date of Service: Apr 06, 2024 Billing Provider: NO VALVERDE MD Common Visit Codes: [id number]/[id number] DISCH DAY >30min KAJAL CASAREZ Apr 12, 2024 14:22 NO VALVERDE MD Apr 12, 2024 20:14
== END 2024-04-06 11:10 | DRG 177 ==
LOC: ER 14:24 → EDBD 14:24 → TELE 17:33 → TELE-WESTW 21:55 → WEST WING 04-02 09:58 → TELE-CENTR 04-06 01:00 → CENTRAL 04-06 07:36
PROVIDERS: ADMIT Student in an Organized Health Care Education/Training Program; ATTEND Emergency Medicine
DX: J15.69 Pneumonia due to other Gram-negative bacteria (principal); G93.41 Metabolic encephalopathy; J96.01 Acute respiratory failure with hypoxia; J15.9 Unspecified bacterial pneumonia; J01.90 Acute sinusitis, unspecified; E11.65 Type 2 diabetes mellitus with hyperglycemia; E66.9 Obesity, unspecified; Z20.822 Contact with and (suspected) exposure to COVID-19; I10 Essential (primary) hypertension; E78.5 Hyperlipidemia, unspecified; Z88.6 Allergy status to analgesic agent; Z68.29 Body mass index [BMI] 29.0-29.9, adult
CPT/HCPCS: 36415; 70450; 70551; 71045; 80048; 80053; 80320; 81001; 82306; 82607; 82746; 82962; 83735; 83880; 84443; 84484; 85025; 87040; 87081; 87086; 87426; 87804; 93005; 94640; 96361; 96365; 97110; 97163; 97530; 99291; G0378; J1815; J2543